=== PATIENT | male | born 1965 | race Caucasian/White ===

== ENCOUNTER 2024-01-04 11:04 | Emergency (ER) | payer MEDICARE ==
[2024-01-04 11:26] VITALS: TEMP 97.2
[2024-01-04 11:45] LABS: Absolute Neutrophil Ct (ANC) 4.72 x10^3/uL (1.78-5.38); BASOPHIL % 0.6 % (0.2-1.2); Basophil (Absolute #) 0.05 x10^3/uL (0.01-0.08); Eosinophil % 1.2 % (0.8-7.0); Eosinophil (Absolute #) 0.09 x10^3/uL (0.04-0.54); Hematocrit 40.3 % (40.1-51.0); Hemoglobin 13.4 g/dL (13.7-17.5); IMMATURE GRAN # 0.02 x10^3u/L (0.001-0.031); IMMATURE GRAN % 0.3 % (0.001-0.429); Lymphocyte (Absolute #) 2.24 x10^3/uL (1.32-3.57); Lymphocytes % 28.6 % (21.8-53.1); Mean Cell Volume 88.4 fL (79.0-92.2); Mean Corpuscular Hemoglobin 29.4 pg (25.7-32.2); Mean Corpuscular Hgb Concent. 33.3 g/dL (32.3-36.5); Mean Platelet Volume 11.3 fL (9.4-12.4); Neutrophil % 60.3 % (34.0-67.9); Platelet Count 194 x10^3/uL (163-337); Red Blood Count 4.56 x10^6/uL (4.63-6.08); Red Cell Distribution Width 13.2 % (11.6-14.4); White Blood Count 7.8 x10^3/uL (4.23-9.07)
[2024-01-04 12:01] LABS: ALBUMIN 4.1 g/dL (3.5-5.0); ANION GAP 16.8 MEQ/L (5-15); BILIRUBIN,TOTAL 0.9 mg/dL (0.2-1.3); Calcium 9.2 mg/dL (8.4-10.2); Creatinine 1 1.12 mg/dL (0.66-1.25); Direct Bilirubin 0.2 mg/dL (0.0-0.4); EST GLOMERULAR FILTRATION RATE 75.7 ML/MIN; Potassium 3.7 mmol/L (3.5-5.1); Total Protein 6.7 g/dL (6.3-8.2)
[2024-01-04 12:11] LABS: INR 0.95 (0.8-3.0); PROTIME 10.4 SECONDS (9.4-12.5); PTT 25.8 SECONDS (25.1-36.5)
[2024-01-04] MEDS ORDERED: Sodium Chloride 0.9% 1000 ML 1,000 ML ONE (12:31)
[2024-01-04] MEDS: Sodium Chloride 0.9% 1000 ML 1,000 ML IV STA (12:32)
[2024-01-04 12:36] LABS: ABO TYPING O; Antibody Screen NEGATIVE (NEGATIVE); RH TYPING POSITIVE
--- NOTE | 2024-01-04 12:53 | XRAY ---
Indication: Bloody stools. Multiple contiguous axial images obtained through the abdomen and pelvis without contrast. Comparison: None Lung bases clear. Heart is not enlarged. Moderate sized paraesophageal hiatal hernia with partial intrathoracic stomach. Noncontrasted stomach and bowel loops appear nonobstructed. Appendix not seen. Minimal descending and sigmoid diverticulosis without diverticulitis. Previous cholecystectomy. Mild diffuse fatty liver. A few nonobstructing bilateral renal punctate calculi. No free fluid/air. Remaining liver, pancreas, spleen, adrenal glands, kidneys, ureters, and bladder are unremarkable for noncontrast exam. Mild scattered aortoiliac calcifications without AAA. Osseous structures intact. No ventral or inguinal hernias. Impression: Chronic findings including paraesophageal hiatal hernia, colonic diverticulosis, fatty liver, nonobstructing bilateral renal punctate calculi, and arteriosclerotic disease. No acute findings on this noncontrast exam.
[2024-01-04 13:00] LABS: IFOB TEST RESULTS POSITIVE (NEGATIVE)
[2024-01-04 14:24] VITALS: BP 108/76; PULSE 79; RESP 21; O2SAT 96
[2024-01-04] MEDS ORDERED: PROTONIX 40 MG IV*** 80 MG in Sodium Chloride 0.9% 500 ML 500 ML IV SCH (14:45)
[2024-01-04] MEDS ORDERED: PROTONIX 40 MG IV IV ONE (14:47)
[2024-01-04] MEDS: PROTONIX 40 MG IV IV ONE (14:49)
--- NOTE | 2024-01-04 15:07 | ERPHSYRPT ---
- History of Present Illness Time Seen by Provider: 01/04/24 12:27 Historian: patient Exam Limitations: no limitations Patient Subjective Stated Complaint: Bloody stools Triage Nursing Assessment: Patient ambulated back to ED and transferred self to bed. Patient A+O X 3. Patient's skin pink, warm and dry. Patient complains of bloody stool on and off for the past two weeks. Patient reports loose, dark stool. Patient denies abdominal pain, N/V. Patient states he has increased weakness and SOB the past few days. Patient lives in [place] and is visiting his family. Physician History: 58-year-old male with history of hypertension, hyperlipidemia, diabetes mellitus, GERD presented in the ER with 10 days history of dark stool which patient reports dark blood with no abdominal pain nausea or vomiting. Patient denies any recent diarrhea. Patient has no history of hemorrhoids. Reports feeling weak tired/fatigued with lack of energy to do his routine activities. Also reports feeling dizzy and lightheaded with activity today. Denies any chest pain palpitations or shortness of breath. Patient has history of rectal bleed in the past, was recommended colonoscopy at his hometown in [facility] but has not scheduled yet. Allergies/Adverse Reactions: No Known Drug Allergies Allergy (Unverified 01/04/24 11:11) Hx Influenza Vaccination/Date Given: No Hx Pneumococcal Vaccination/Date Given: No Immunizations Up to Date: Yes Travel Risk - International Travel Have you traveled outside of the country in past 3 weeks: No - Review of Systems Constitutional: Fatigue, Weakness Eyes: No Symptoms Ears, Nose, & Throat: No Symptoms Respiratory: No Symptoms Cardiac: No Symptoms Abdominal/Gastrointestinal: Melena Genitourinary Symptoms: No Symptoms Musculoskeletal: Arthralgias Neurological: Dizziness Psychological: No Symptoms Hematologic/Lymphatic: No Symptoms Immunological/Allergic: No Symptoms - Past Medical History Pertinent Past Medical History: Yes Neurological History: No Pertinent History ENT History: No Pertinent History Cardiac History: High Cholesterol, Hypertension Respiratory History: COPD Endocrine Medical History: Diabetes Type II Musculoskeletal History: No Pertinent History GI Medical History: No Pertinent History History: No Pertinent History Psycho-Social History: No Pertinent History Male Reproductive Disorders: Prostate Problems - Past Surgical History Past Surgical History: Yes Neuro Surgical History: No Pertinent History Cardiac: No Pertinent History Respiratory: No Pertinent History Gastrointestinal: Appendectomy, Cholecystectomy, Hernia Repair Musculoskeletal: Orthopedic Surgery Other Surgical History: Left elbow surgery - Social History Smoking Status: Current every day smoker How long have you smoked: years Exposure to second hand smoke: No Drug Use: marijuana - Social Determinants of Health Will the patient participate in the screening: Yes Do you worry about a steady place to live?: No Do you have any problems with any of the following?: No known problems In the past 12 months,have you had to go without utilities?: No Transportation Issues: No Has anyone in your support network made you feel unsafe?: No Have you or anyone in your house had to go without enough: No - Nursing Vital Signs Nursing Vital Signs: Initial Vital Signs Temperature 97.2 F 01/04/24 11:13 Pulse Rate 96 H 01/04/24 11:13 Respiratory Rate 18 01/04/24 11:13 Blood Pressure 99/75 01/04/24 11:13 O2 Sat by Pulse Oximetry 96 01/04/24 11:13 Pain Scale Pain Intensity 0 - Physical Exam General Appearance: no apparent distress, alert Ears, Nose, Throat Exam: normal ENT inspection Neck Exam: normal inspection, full range of motion Respiratory Exam: normal breath sounds, lungs clear Cardiovascular Exam: regular rate/rhythm, normal heart sounds Gastrointestinal/Abdomen Exam: soft, normal bowel sounds, No tenderness Back Exam: normal inspection, normal range of motion Extremity Exam: normal inspection, normal range of motion Neurologic Exam: alert, oriented x 3, cooperative, campus supervisor II-XII nml as tested, normal mood/affect, nml cerebellar function, nml station & gait, sensation nml, motor deficits Skin Exam: normal color SpO2 Interpretation: normal SpO2: 96 O2 Delivery: Room Air Ordered Tests: Active Orders 24 hr Category Date Time Status Manager Work STAT Care 01/04/24 11:37 Active IV Insertion STAT Care 01/04/24 11:34 Active NPO (ED) STAT Care 01/04/24 11:34 Active Pulse Oximetry (ED) STAT Care 01/04/24 11:34 Active ABDOMEN AND PELVIS W/0 CONTRAS [CT] Stat Exams 01/04/24 11:37 Completed CBC W DIFF Stat Lab 01/04/24 11:26 Completed CMP/HFII Stat Lab 01/04/24 11:26 Completed Lactic Acid Stat Lab 01/04/24 11:57 Completed Lactic Acid Stat Lab 01/04/24 13:59 Received OB-FECAL SCREEN Stat Lab 01/04/24 Completed PROTIME WITH INR Stat Lab 01/04/24 11:26 Completed PTT Stat Lab 01/04/24 11:26 Completed TROPONIN Q4H Lab 01/04/24 11:26 Completed TROPONIN Q4H Lab 01/04/24 15:45 Ordered TROPONIN Q4H Lab 01/04/24 19:45 Ordered TROPONIN Q4H Lab 01/04/24 23:45 Ordered Medication Summary Generic Name Dose Route Start Last Admin Trade Name Freq PRN Reason Stop Dose Admin Pantoprazole Sodium 80 mg/ 500 mls @ 50 mls/hr 01/04/24 14:45 Sodium Chloride IV 02/03/24 14:44 .Q10H JEET Discontinued Medications Generic Name Dose Route Start Last Admin Trade Name Freq PRN Reason Stop Dose Admin Sodium Chloride 1,000 mls @ 999 mls/hr 01/04/24 12:29 01/04/24 13:46 Sodium Chloride 0.9% 1000 Ml IV 01/04/24 13:29 Infused .Q1H1M STA Infusion Sodium Chloride Confirm 01/04/24 12:31 Sodium Chloride 0.9% 1000 Ml Administered 01/04/24 12:32 Dose 1,000 mls @ ud .ROUTE .STK-MED ONE Pantoprazole Sodium 40 mg 01/04/24 14:39 01/04/24 14:49 Pantoprazole 40 Mg Vial IV 01/04/24 14:40 40 mg STAT ONE Administration Pantoprazole Sodium Confirm 01/04/24 14:47 Pantoprazole 40 Mg Vial Administered 01/04/24 14:48 Dose 40 mg IV .STK-MED ONE Lab/Rad Data: Laboratory Result Diagrams 01/04/24 11:26 01/04/24 11:26 Laboratory Results 01/04/24 01/04/24 01/04/24 Range/Units Unknown 11:57 11:26 WBC (4.23-9.07) x10^3/uL RBC (4.63-6.08) x10^6/uL Hgb (13.7-17.5) g/dL Hct (40.1-51.0) % MCV (79.0-92.2) fL MCH (25.7-32.2) pg MCHC (32.3-36.5) g/dL RDW (11.6-14.4) % Plt Count (163-337) x10^3/uL MPV (9.4-12.4) fL Gran % (34.0-67.9) % Immature Gran % (Auto) (0.001-0.429) % Nucleat RBC Rel Count (0.00-0.2) % Eos # (Auto) (0.04-0.54) x10^3/uL Immature Gran # (Auto) (0.001-0.031) x10^3u/L Absolute Lymphs (auto) (1.32-3.57) x10^3/uL Absolute Monos (auto) (0.30-0.82) x10^3/uL Absolute Nucleated RBC (0.00-0.012) x10^3u/L Lymphocytes % (21.8-53.1) % Monocytes % (5.3-12.2) % Eosinophils % (0.8-7.0) % Basophils % (0.2-1.2) % Absolute Granulocytes (1.78-5.38) x10^3/uL Basophils # (0.01-0.08) x10^3/uL PT (9.4-12.5) SECONDS INR (0.8-3.0) APTT (25.1-36.5) SECONDS Sodium (135-145) mmol/L Potassium (3.5-5.1) mmol/L Chloride (98-107) mmol/L Carbon Dioxide (22-30) mmol/L Anion Gap (5-15) MEQ/L BUN (9-20) mg/dL Creatinine (0.66-1.25) mg/dL Estimated GFR ML/MIN Glucose (74-106) mg/dL Lactic Acid 2.1 H (0.4-2.0) Calcium (8.4-10.2) mg/dL Total Bilirubin (0.2-1.3) mg/dL Direct Bilirubin (0.0-0.4) mg/dL AST (17-59) U/L ALT (0-50) U/L Alkaline Phosphatase (38-126) U/L Troponin I < 0.012 (0.000-0.033) ng/mL Serum Total Protein (6.3-8.2) g/dL Albumin (3.5-5.0) g/dL Stl Occult Blood (IFOB) POSITIVE A (NEGATIVE) ABO Group Rh Factor Antibody Screen (NEGATIVE) 01/04/24 01/04/24 01/04/24 Range/Units 11:26 11:26 11:26 WBC (4.23-9.07) x10^3/uL RBC (4.63-6.08) x10^6/uL Hgb (13.7-17.5) g/dL Hct (40.1-51.0) % MCV (79.0-92.2) fL MCH (25.7-32.2) pg MCHC (32.3-36.5) g/dL RDW (11.6-14.4) % Plt Count (163-337) x10^3/uL MPV (9.4-12.4) fL Gran % (34.0-67.9) % Immature Gran % (Auto) (0.001-0.429) % Nucleat RBC Rel Count (0.00-0.2) % Eos # (Auto) (0.04-0.54) x10^3/uL Immature Gran # (Auto) (0.001-0.031) x10^3u/L Absolute Lymphs (auto) (1.32-3.57) x10^3/uL Absolute Monos (auto) (0.30-0.82) x10^3/uL Absolute Nucleated RBC (0.00-0.012) x10^3u/L Lymphocytes % (21.8-53.1) % Monocytes % (5.3-12.2) % Eosinophils % (0.8-7.0) % Basophils % (0.2-1.2) % Absolute Granulocytes (1.78-5.38) x10^3/uL Basophils # (0.01-0.08) x10^3/uL PT 10.4 (9.4-12.5) SECONDS INR 0.95 (0.8-3.0) APTT 25.8 (25.1-36.5) SECONDS Sodium 141 (135-145) mmol/L Potassium 3.7 (3.5-5.1) mmol/L Chloride 106 (98-107) mmol/L Carbon Dioxide 21 L (22-30) mmol/L Anion Gap 16.8 H (5-15) MEQ/L BUN 24 H (9-20) mg/dL Creatinine 1.12 (0.66-1.25) mg/dL Estimated GFR 75.7 ML/MIN Glucose 176 H (74-106) mg/dL Lactic Acid (0.4-2.0) Calcium 9.2 (8.4-10.2) mg/dL Total Bilirubin 0.90 (0.2-1.3) mg/dL Direct Bilirubin 0.2 (0.0-0.4) mg/dL AST 53 (17-59) U/L ALT 58 H (0-50) U/L Alkaline Phosphatase 71 (38-126) U/L Troponin I (0.000-0.033) ng/mL Serum Total Protein 6.7 (6.3-8.2) g/dL Albumin 4.1 (3.5-5.0) g/dL Stl Occult Blood (IFOB) (NEGATIVE) ABO Group O Rh Factor POSITIVE Antibody Screen NEGATIVE (NEGATIVE) 01/04/24 Range/Units 11:26 WBC 7.8 (4.23-9.07) x10^3/uL RBC 4.56 L (4.63-6.08) x10^6/uL Hgb 13.4 L (13.7-17.5) g/dL Hct 40.3 (40.1-51.0) % MCV 88.4 (79.0-92.2) fL MCH 29.4 (25.7-32.2) pg MCHC 33.3 (32.3-36.5) g/dL RDW 13.2 (11.6-14.4) % Plt Count 194 (163-337) x10^3/uL MPV 11.3 (9.4-12.4) fL Gran % 60.3 (34.0-67.9) % Immature Gran % (Auto) 0.3 (0.001-0.429) % Nucleat RBC Rel Count 0.0 (0.00-0.2) % Eos # (Auto) 0.09 (0.04-0.54) x10^3/uL Immature Gran # (Auto) 0.02 (0.001-0.031) x10^3u/L Absolute Lymphs (auto) 2.24 (1.32-3.57) x10^3/uL Absolute Monos (auto) 0.70 (0.30-0.82) x10^3/uL Absolute Nucleated RBC 0.00 (0.00-0.012) x10^3u/L Lymphocytes % 28.6 (21.8-53.1) % Monocytes % 9.0 (5.3-12.2) % Eosinophils % 1.2 (0.8-7.0) % Basophils % 0.6 (0.2-1.2) % Absolute Granulocytes 4.72 (1.78-5.38) x10^3/uL Basophils # 0.05 (0.01-0.08) x10^3/uL PT (9.4-12.5) SECONDS INR (0.8-3.0) APTT (25.1-36.5) SECONDS Sodium (135-145) mmol/L Potassium (3.5-5.1) mmol/L Chloride (98-107) mmol/L Carbon Dioxide (22-30) mmol/L Anion Gap (5-15) MEQ/L BUN (9-20) mg/dL Creatinine (0.66-1.25) mg/dL Estimated GFR ML/MIN Glucose (74-106) mg/dL Lactic Acid (0.4-2.0) Calcium (8.4-10.2) mg/dL Total Bilirubin (0.2-1.3) mg/dL Direct Bilirubin (0.0-0.4) mg/dL AST (17-59) U/L ALT (0-50) U/L Alkaline Phosphatase (38-126) U/L Troponin I (0.000-0.033) ng/mL Serum Total Protein (6.3-8.2) g/dL Albumin (3.5-5.0) g/dL Stl Occult Blood (IFOB) (NEGATIVE) ABO Group Rh Factor Antibody Screen (NEGATIVE) - Progress Progress: unchanged, re-examined Progress Note: 01/04/24 15:04 58-year-old is evaluated in the ER for dark stool/dark blood in the stool for the last 10 days with now having feeling of lightheadedness and generalized weakness. Patient is given fluids and Protonix, on reevaluation feeling better. Workup showed normal white count, hemoglobin of 13, no baseline available. Ch emistries fairly unremarkable with mildly elevated BUN of 24. Normal coags. No UTI. Has positive stool occult. Patient refused to have rectal exam to rule out any hemorrhoids. CT abdomen pelvis showed hiatal hernia but no acute abdominal pelvic findings of colitis/diverticulitis. I have discussed with Dr. Radhames Santiago who has seen patient and recommended colonoscopy in the morning but patient decided not to stay and leave AGAINST MEDICAL ADVICE. I have discussed with patient and daughter in length about seriousness of the condition and the worst outcome it could have if left without proper treatment but he did not want to stay in the hospital at all. Patient called his primary hospital and is in the process of getting colonoscopy scheduled there. He does not want to stay in this hospital at all. He does understand the risk of leaving AGAINST MEDICAL ADVICE, is not confused or altered at all. He signed AMA paperwork and walked out of the ER. He is advised to continue and increase dose of omeprazole from 40 daily to twice a day. Also discussed signs symptoms of worsening needing return to ER which patient/daughter seem understanding Discussed with .: Michelle Counseled pt/family regarding: lab results, diagnosis, need for follow-up, rad results Medical Desision Making - Independent Historian Additional History obtained from: Child - Discussion of managment Care discussed with:: specialist (Dr. Radhames Santiago general surgeon) Reviewed:: Test results, Need for additional workup Agreed on:: Treatment plan, place in obs Will see patient: in ED - Diagnostic Testing Diagnostic test were ordered, analyzed, and reviewed by me: Yes Radiological Interpretation: Reviewed by me - Risk of complications The pt has a mod risk of morbidity or mortality based on: Need for prescription drug management The pt has a high risk of morbidity or mortality based on: Decision regarding hospitilization or escalation of hosp level of care - Departure Departure Disposition: AMA Clinical Impression: GI bleed Condition: Stable Critical Care Time: No Referrals: DOCTOR,NO FAMILY [Primary Care Provider] - Follow up/PCP as directed
--- NOTE | 2024-01-04 16:17 | PCM.HP ---
History of Present Illness - Chief Complaint History of Present Illness: is a 58 year old male. hx per chart review, d/w pt and daughter at bedside. patient states that maybe on and off for weeks he would notice the occasional dark stool. over the last week and a half in town visiting daughter and grandkids with worsening dark stools not tarry but dark purplish. and then today jello like clotty dark stool. denies prior egd c scope. did have cholecystectomy. denies heartburn, abd pain, n/v, consitpation diarrhea. other GIB. he came in today due to feeling woozy and the more prominent blood. in ed stable. hgb around 13. surg c/s for GIB. "- History of Present Illness Time Seen by Provider: 01/04/24 12:27 Historian: patient Exam Limitations: no limitations Patient Subjective Stated Complaint: Bloody stools Triage Nursing Assessment: Patient ambulated back to ED and transferred self to bed. Patient A+O X 3. Patient's skin pink, warm and dry. Patient complains of bloody stool on and off for the past two weeks. Patient reports loose, dark stool. Patient denies abdominal pain, N/V. Patient states he has increased weakness and SOB the past few days. Patient lives in [place] and is visiting his family. Physician History: 58-year-old male with history of hypertension, hyperlipidemia, diabetes mellitus, GERD presented in the ER with 10 days history of dark stool which patient reports dark blood with no abdominal pain nausea or vomiting. Patient denies any recent diarrhea. Patient has no history of hemorrhoids. Reports feeling weak tired/fatigued with lack of energy to do his routine activities. Also reports feeling dizzy and lightheaded with activity today. Denies any chest pain palpitations or shortness of breath. Patient has history of rectal bleed in the past, was recommended colonoscopy at his hometown in [facility] but has not scheduled yet. Allergies/Adverse Reactions: No Known Drug Allergies Allergy (Unverified 01/04/24 11:11) Hx Influenza Vaccination/Date Given: No Hx Pneumococcal Vaccination/Date Given: No Immunizations Up to Date: Yes Travel Risk - International Travel Have you traveled outside of the country in past 3 weeks: No - Review of Systems Constitutional: Fatigue, Weakness Eyes: No Symptoms Ears, Nose, & Throat: No Symptoms Respiratory: No Symptoms Cardiac: No Symptoms Abdominal/Gastrointestinal: Melena Genitourinary Symptoms: No Symptoms Musculoskeletal: Arthralgias Neurological: Dizziness Psychological: No Symptoms Hematologic/Lymphatic: No Symptoms Immunological/Allergic: No Symptoms - Past Medical History Pertinent Past Medical History: Yes Neurological History: No Pertinent History ENT History: No Pertinent History Cardiac History: High Cholesterol, Hypertension Respiratory History: COPD Endocrine Medical History: Diabetes Type II Musculoskeletal History: No Pertinent History GI Medical History: No Pertinent History History: No Pertinent History Psycho-Social History: No Pertinent History Male Reproductive Disorders: Prostate Problems - Past Surgical History Past Surgical History: Yes Neuro Surgical History: No Pertinent History Cardiac: No Pertinent History Respiratory: No Pertinent History Gastrointestinal: Appendectomy, Cholecystectomy, Hernia Repair Musculoskeletal: Orthopedic Surgery Other Surgical History: Left elbow surgery - Social History Smoking Status: Current every day smoker How long have you smoked: years Exposure to second hand smoke: No Drug Use: marijuana - Social Determinants of Health Will the patient participate in the screening: Yes Do you worry about a steady place to live?: No Do you have any problems with any of the following?: No known problems In the past 12 months,have you had to go without utilities?: No Transportation Issues: No Has anyone in your support network made you feel unsafe?: No Have you or anyone in your house had to go without enough: No" Medications & Allergies Allergies/Adverse Reactions: Allergies Allergy/AdvReac Type Severity Reaction Status Date / Time No Known Drug Allergies Allergy Unverified 01/04/24 11:11 - Past Medical History Past Medical History: Yes Neurological History: No Pertinent History ENT History: No Pertinent History Cardiac History: High Cholesterol, Hypertension Respiratory History: COPD Endocrine Medical History: Diabetes Type II Musculoskelatal History: No Pertinent History GI Medical History: No Pertinent History History: No Pertinent History Pyscho-Social History: No Pertinent History Male Reproductive Disorders: Prostate Problems - Past Surgical History Past Surgical History: Yes Neuro Surgical History: No Pertinent History Cardiac History: No Pertinent History Respiratory Surgery: No Pertinent History GI Surgical History: Appendectomy, Cholecystectomy, Hernia Repair Musculskeletal Surgical Hx: Orthopedic Surgery Other Surgical History: Left elbow surgery - Social History Smoking Status: Current every day smoker How long have you smoked: years Exposure to second hand smoke: No Alcohol: None Drug Use: marijuana - Social Determinants of Health Will the patient participate in the screening: Yes Do you worry about a steady place to live?: No Do you have any problems with any of the following?: No known problems In the past 12 months,have you had to go without utilities?: No Have you or anyone in your house had to go without enough: No Transportation Issues: No Has anyone in your support network made you feel unsafe?: No - Physical Exam Vital Signs: Vital Signs - 24 hr Temp Pulse Resp BP BP Pulse Ox 01/04/24 15:08 96 01/04/24 14:15 79 21 108/76 96 01/04/24 14:00 79 20 107/81 95 01/04/24 13:48 81 22 112/82 97 01/04/24 13:45 75 22 92/53 95 01/04/24 13:30 76 23 96/64 01/04/24 13:15 74 20 90/65 95 01/04/24 13:00 76 20 92/51 95 01/04/24 12:45 78 22 89/61 95 01/04/24 12:30 83 21 97/65 97 01/04/24 12:00 85 24 92/73 95 01/04/24 11:34 96 01/04/24 11:30 90 25 H 90/60 94 L 01/04/24 11:16 91 H 23 105/66 98 01/04/24 11:13 97.2 F 96 H 18 99/75 96 Additional Findings: 01/04/24 16:14 nad no scleral icterus neck symmetric nonlabord resps rrr nd, soft, nttp mild edema gcs 15 Results - Labs Lab/Micro Results: Lab Results-Last 24 Hours 01/04/24 01/04/24 01/04/24 Range/Units 11:26 11:26 11:26 WBC 7.8 (4.23-9.07) x10^3/uL RBC 4.56 L (4.63-6.08) x10^6/uL Hgb 13.4 L (13.7-17.5) g/dL Hct 40.3 (40.1-51.0) % MCV 88.4 (79.0-92.2) fL MCH 29.4 (25.7-32.2) pg MCHC 33.3 (32.3-36.5) g/dL RDW 13.2 (11.6-14.4) % Plt Count 194 (163-337) x10^3/uL MPV 11.3 (9.4-12.4) fL Gran % 60.3 (34.0-67.9) % Immature Gran % (Auto) 0.3 (0.001-0.429) % Nucleat RBC Rel Count 0.0 (0.00-0.2) % Eos # (Auto) 0.09 (0.04-0.54) x10^3/uL Immature Gran # (Auto) 0.02 (0.001-0.031) x10^3u/L Absolute Lymphs (auto) 2.24 (1.32-3.57) x10^3/uL Absolute Monos (auto) 0.70 (0.30-0.82) x10^3/uL Absolute Nucleated RBC 0.00 (0.00-0.012) x10^3u/L Lymphocytes % 28.6 (21.8-53.1) % Monocytes % 9.0 (5.3-12.2) % Eosinophils % 1.2 (0.8-7.0) % Basophils % 0.6 (0.2-1.2) % Absolute Granulocytes 4.72 (1.78-5.38) x10^3/uL Basophils # 0.05 (0.01-0.08) x10^3/uL PT 10.4 (9.4-12.5) SECONDS INR 0.95 (0.8-3.0) APTT 25.8 (25.1-36.5) SECONDS Sodium 141 (135-145) mmol/L Potassium 3.7 (3.5-5.1) mmol/L Chloride 106 (98-107) mmol/L Carbon Dioxide 21 L (22-30) mmol/L Anion Gap 16.8 H (5-15) MEQ/L BUN 24 H (9-20) mg/dL Creatinine 1.12 (0.66-1.25) mg/dL Estimated GFR 75.7 ML/MIN Glucose 176 H (74-106) mg/dL Lactic Acid (0.4-2.0) Calcium 9.2 (8.4-10.2) mg/dL Total Bilirubin 0.90 (0.2-1.3) mg/dL Direct Bilirubin 0.2 (0.0-0.4) mg/dL AST 53 (17-59) U/L ALT 58 H (0-50) U/L Alkaline Phosphatase 71 (38-126) U/L Troponin I (0.000-0.033) ng/mL Serum Total Protein 6.7 (6.3-8.2) g/dL Albumin 4.1 (3.5-5.0) g/dL Stl Occult Blood (IFOB) (NEGATIVE) ABO Group Rh Factor Antibody Screen (NEGATIVE) 01/04/24 01/04/24 01/04/24 Range/Units 11:26 11:26 11:57 WBC (4.23-9.07) x10^3/uL RBC (4.63-6.08) x10^6/uL Hgb (13.7-17.5) g/dL Hct (40.1-51.0) % MCV (79.0-92.2) fL MCH (25.7-32.2) pg MCHC (32.3-36.5) g/dL RDW (11.6-14.4) % Plt Count (163-337) x10^3/uL MPV (9.4-12.4) fL Gran % (34.0-67.9) % Immature Gran % (Auto) (0.001-0.429) % Nucleat RBC Rel Count (0.00-0.2) % Eos # (Auto) (0.04-0.54) x10^3/uL Immature Gran # (Auto) (0.001-0.031) x10^3u/L Absolute Lymphs (auto) (1.32-3.57) x10^3/uL Absolute Monos (auto) (0.30-0.82) x10^3/uL Absolute Nucleated RBC (0.00-0.012) x10^3u/L Lymphocytes % (21.8-53.1) % Monocytes % (5.3-12.2) % Eosinophils % (0.8-7.0) % Basophils % (0.2-1.2) % Absolute Granulocytes (1.78-5.38) x10^3/uL Basophils # (0.01-0.08) x10^3/uL PT (9.4-12.5) SECONDS INR (0.8-3.0) APTT (25.1-36.5) SECONDS Sodium (135-145) mmol/L Potassium (3.5-5.1) mmol/L Chloride (98-107) mmol/L Carbon Dioxide (22-30) mmol/L Anion Gap (5-15) MEQ/L BUN (9-20) mg/dL Creatinine (0.66-1.25) mg/dL Estimated GFR ML/MIN Glucose (74-106) mg/dL Lactic Acid 2.1 H (0.4-2.0) Calcium (8.4-10.2) mg/dL Total Bilirubin (0.2-1.3) mg/dL Direct Bilirubin (0.0-0.4) mg/dL AST (17-59) U/L ALT (0-50) U/L Alkaline Phosphatase (38-126) U/L Troponin I < 0.012 (0.000-0.033) ng/mL Serum Total Protein (6.3-8.2) g/dL Albumin (3.5-5.0) g/dL Stl Occult Blood (IFOB) (NEGATIVE) ABO Group O Rh Factor POSITIVE Antibody Screen NEGATIVE (NEGATIVE) 01/04/24 Range/Units Unknown WBC (4.23-9.07) x10^3/uL RBC (4.63-6.08) x10^6/uL Hgb (13.7-17.5) g/dL Hct (40.1-51.0) % MCV (79.0-92.2) fL MCH (25.7-32.2) pg MCHC (32.3-36.5) g/dL RDW (11.6-14.4) % Plt Count (163-337) x10^3/uL MPV (9.4-12.4) fL Gran % (34.0-67.9) % Immature Gran % (Auto) (0.001-0.429) % Nucleat RBC Rel Count (0.00-0.2) % Eos # (Auto) (0.04-0.54) x10^3/uL Immature Gran # (Auto) (0.001-0.031) x10^3u/L Absolute Lymphs (auto) (1.32-3.57) x10^3/uL Absolute Monos (auto) (0.30-0.82) x10^3/uL Absolute Nucleated RBC (0.00-0.012) x10^3u/L Lymphocytes % (21.8-53.1) % Monocytes % (5.3-12.2) % Eosinophils % (0.8-7.0) % Basophils % (0.2-1.2) % Absolute Granulocytes (1.78-5.38) x10^3/uL Basophils # (0.01-0.08) x10^3/uL PT (9.4-12.5) SECONDS INR (0.8-3.0) APTT (25.1-36.5) SECONDS Sodium (135-145) mmol/L Potassium (3.5-5.1) mmol/L Chloride (98-107) mmol/L Carbon Dioxide (22-30) mmol/L Anion Gap (5-15) MEQ/L BUN (9-20) mg/dL Creatinine (0.66-1.25) mg/dL Estimated GFR ML/MIN Glucose (74-106) mg/dL Lactic Acid (0.4-2.0) Calcium (8.4-10.2) mg/dL Total Bilirubin (0.2-1.3) mg/dL Direct Bilirubin (0.0-0.4) mg/dL AST (17-59) U/L ALT (0-50) U/L Alkaline Phosphatase (38-126) U/L Troponin I (0.000-0.033) ng/mL Serum Total Protein (6.3-8.2) g/dL Albumin (3.5-5.0) g/dL Stl Occult Blood (IFOB) POSITIVE A (NEGATIVE) ABO Group Rh Factor Antibody Screen (NEGATIVE) - Radiology Impressions Radiology Exams & Impressions: Radiology Procedures Category Date Time Status ABDOMEN AND PELVIS W/0 CONTRAS [CT] Stat Exams 01/04/24 11:37 Completed Assessment/Plan (1) GI bleed Status: Acute Assessment & Plan: 58yo with GIB. hgb 13 hemodynamically stable. did have multiple bloody bms. offered admission with prep and egd c scope 01/04. but patient is refusing that. primarily because he lives about 5 hours away and his doctors are there and he wants to spend remaining time with family here doesn't want admitted for the scope and he feels way better now. the pient was counseled and he isn't willing to get this inpatient workup. he is willing to follow up promptly with his doctor at home. -PPI empiric tx for ulcer. -f/u with primary. need to send his workup results with him. Code(s): K92.2 - GASTROINTESTINAL HEMORRHAGE, UNSPECIFIED
== END 2024-01-04 15:10 | disposition left against medical advice (07) ==
LOC: ED 11:04
DX: K92.2 Gastrointestinal hemorrhage, unspecified (principal); R53.1 Weakness; R42 Dizziness and giddiness; E78.5 Hyperlipidemia, unspecified; I10 Essential (primary) hypertension; E11.9 Type 2 diabetes mellitus without complications; Z72.0 Tobacco use
CPT/HCPCS: 36000; 36415; 74176; 80053; 82248; 83605; 84484; 85025; 85610; 85730; 86850; 86900; 86901; 93041; 94760; 96374; 99284; G0328; 82274; 96375